=== PATIENT | female | born 1995 | race African-American/Black ===

== ENCOUNTER 2020-07-30 12:44 | Emergency (ER) | payer MEDICAID ==
[~2020-07-30] VITALS: Ht 170.2 cm; Wt 68.0 kg
--- NOTE | 2020-07-30 12:49 | NUR ---
At triage pt stated she is concerned about how much it will cost and she does not want any test done until she speaks with the doctor. Dr. Rdz notified.
--- NOTE | 2020-07-30 13:35 | NUR ---
Patient discharged to home in stable condition. Written and verbal after care instructions given. Patient verbalizes understanding of instructions. Stressed follow up or return to ER for worsening s/s.
== END 2020-07-30 13:36 | disposition home or self-care (01) ==
LOC: ER 12:44
DX: R07.89 Other chest pain (principal)
CPT/HCPCS: 93005; A4663